=== PATIENT | female | born 1995 | race Caucasian/White ===

== ENCOUNTER 2019-03-04 18:48 | Emergency (ER) | payer BC ==
--- NOTE | 2019-03-04 19:07 | ER Report ---
History and Physical Time Seen By MD: 19:04 Hx. of Stated Complaint: sent by urgent care with an elevated d-dimer and diff breathing. it began around 2pm HPI/ROS CHIEF COMPLAINT: Shortness of breath, palpitations, dizziness HISTORY OF PRESENT ILLNESS: 23-year-old female sent over from [facility] urgent ca re after an evaluation there showed elevated d-dimer of 0.68, suggestive of pulmonary embolism. Patient's been doing ill with viral URI symptoms. Today she had an episode of 30 seconds of palpitations and dizziness with shortness of breath. She still feels mildly short of breath. Her vital signs are stable. She has a normal pulse ox reported from urgent care. They did laboratory studies which show a WBC count of 15,000, normal laboratories an elevated d- dimer. Patient's EKG showed normal sinus rhythm with suspicion of a Q in 3 and inverted T-wave in lead 3 REVIEW OF SYSTEMS: Respiratory: As above Cardiovascular: As above Gastrointestinal: No vomiting, no abdominal pain. Musculoskeletal: No back pain. Allergies: Coded Allergies: hydrocodone (Verified Adverse Reaction, Mild, VOMITING, 03/04/19) Home Meds Active Scripts Cefdinir 300 Mg Cap (OMNICEF 300 MG CAP (OR EQUIV)) 300 Mg Cap, 1 CAP PO BID for 10 Days, #20 CAP 0 Refills Prov:DIMAS OCONNOR DNP, FNP-BC 12/24/17 Fluticasone Prop 50 Mcg Ns (FLONASE 50 MCG NS) 16 Gm Flasher.susp, 2 SPRAYS NS QDAY for 10 Days, #1 BOT 0 Refills Prov:DIMAS OCONNOR DNP, FNP-BC 12/19/17 Guaifenesin/Codeine Phosphate (Codeine-Guaifen 10-100 mg/5 ml) 120 Ml Liquid, 1 TSP PO Q6H PRN for COUGH, #120 ML 0 Refills Prov:DIMAS OCONNOR DNP, FNP-BC 12/19/17 Benzonatate (BENZONATATE) 200 Mg Capsule, 1 CAP PO TID PRN for COUGH, #15 CAP 0 Refills Prov:DIMAS OCONNOR DNP, FNP-BC 12/19/17 Amoxicillin/Pot Clav 875-125 Mg Tab (AUGMENTIN 875-125 TABLET) 1 Each Tablet, 1 TAB PO Q12H for 10 Days, #20 TAB 0 Refills Prov:DIMAS OCONNOR DNP, PRODUCER-BC 12/19/17 Reported Medications Mesalamine (MESALAMINE) 1 Gm Powder, 1 GM MC 1WK 07/19/16 Lactobacillus Combination No.4 (PROBIOTIC) 1 Each Capsule, 1 EACH PO BID, CAPSULE 07/19/16 Norgestimate-Ethinyl Estradiol (ORTHO TRI-CYCLEN) 1 Each Tablet, 1 EACH PO QDAY 07/19/16 Multivitamin/Iron/Folic Acid (CENTRUM COMPLETE MULTIVIT TAB) 1 Each Tablet, 1 EACH PO QDAY 07/19/16 Erythromycin Base (ERYTHROMYCIN) Unknown Strength Oint...g., 3.5 GM OP 07/19/16 Balsalazide Disodium (COLAZAL) 750 Mg Capsule, 9 CAP PO QDAY, CAPSULE 07/19/16 Reviewed Nurses Notes: Yes Old Medical Records Reviewed: Yes Hx Smoking: Yes (2 CIGG PER WK) Smoking Status: Current: Some Days Smoker Hx Substance Use Disorder: No Hx Alcohol Use: Yes Constitutional Vital Sign - Last 24 Hours 03/04/19 03/04/19 03/04/19 03/04/19 18:56 18:58 19:03 19:30 Temp 98.7 Pulse 83 62 Resp 14 B/P (MAP) 82/59 (67) 78/49 (59) 82/67 (72) Pulse Ox 94 94 O2 Delivery Room Air 03/04/19 03/04/19 19:33 19:48 Pulse 65 64 Resp 13 18 Pulse Ox 96 93 Physical Exam General Appearance: The patient is alert, has no immediate need for airway protection and no current signs of toxicity. Vital signs stable, afebrile, pulse ox normal HEENT: Pupils equal and round no injection. TMs normal, oropharynx without redness or exudate Respiratory: Chest is non tender, lungs are clear to auscultation. Mild chest wall tenderness Cardiac: regular rate and rhythm, no murmur Gastrointestinal: Abdomen is soft and non tender, no masses, bowel sounds normal. Musculoskeletal: Neck: Neck is supple and non tender. Extremities have full range of motion and are non tender. No edema, no calf tenderness Skin: No rashes or lesions. DIFFERENTIAL DIAGNOSIS: After history and physical exam differential diagnosis was considered for chest pain including but not limited to myocardial ischemia, pericarditis pulmonary embolus, chest wall pain, pleural inflammation and pulmonary infectious causes. Additionally,shortness of breath including but not limited to pulmonary infectious process, COPD, asthma, pulmonary embolus and congestive heart failure. Medical Decision Making EKG/Imaging Imaging Results: CT scan of the CTA pulmonary angiogram was obtained. The results of the study are CT CTA CHEST W & W/O CON HISTORY: dyspnea palpitations elevated d-dimer TECHNIQUE: CTA chest with intravenous contrast attention to pulmonary arteries. Sagittal, coronal and slab 3D MIP coronal reconstructed images were also c reated for further evaluation and interpretation. CONTRAST: Isovue-370 75 mls. One of the following dose optimization techniques was utilized in the performance of this exam: Automated exposure control; adjustment of the mA and/or kV according to the patient's size; or use of an iterative reconstruction technique. Specific details can be referenced in the facility's radiology CT exam operational policy. COMPARISON: None. FINDINGS: Heart/coronary vessels: The heart size is normal. There is no pericardial effusion. Pulmonary arteries: There is no filling defect in the pulmonary arteries to suggest pulmonary embolus. Thoracic aorta: Unremarkable. Mediastinum: There is no mediastinal or hilar lymphadenopathy. The thyroid gland is unremarkable. Lymph nodes: No findings of axillary lymphadenopathy. Lungs/pleura: There is no finding of an infiltrate. Visualized upper abdomen: The upper abdomen so far as visualized is unremarkable. The gallbladder is not seen. Bones/soft tissues: Negative. IMPRESSION: 1. No findings of pulmonary embolus. 2. No findings of pneumonia or pleural effusion. The study was read by the radiologist. I viewed the images myself on the PACS system. ED Course/Re-evaluation ED Course Patient was minute to an examination room. H&P was done. The differential diagnoses was considered. Patient was sent over from urgent care. She had an extensive diagnostic evaluation including an EKG, troponin. White blood cell count were all negative. Her d-dimer was mildly elevated at 0.68, suggesting pulmonary embolism. She sent over, primarily to have a CTA pulmonary angiogram performed to rule out pulmonary embolism. Patient has diffuse nonspecific cold symptoms and chest tightness. She did have episode of near syncope and tachycardia with palpitations. Patient underwent a CTA pulmonary angiogram. She was somewhat anxious and was given hydroxyzine 25 mg by mouth. Patient's CT scan was negative for evidence of pulmonary embolus. She is advised conservative treatment plan for viral symptoms. She's advised ibuprofen, DayQuil and NyQuil. Patient advised to follow-up with primary care if unimproved in 3-5 days. Decision to Disposition Date: March 04, 2019 Decision to Disposition Time: 19:53 Depart Departure Latest Vital Signs Vital Signs Date Time Temp Pulse Resp B/P (MAP) Pulse Ox O2 Delivery O2 Flow Rate FiO2 03/04/19 19:48 64 18 93 03/04/19 19:30 82/67 (72) 03/04/19 18:58 98.7 Room Air Impression: Primary Impression: Palpitations Additional Impressions: Viral upper respiratory infection Near syncope Condition: Improved Disposition: HOME OR SELF-CARE Referrals: BESSY GONSALVES APRN-C (PCP) Patient Instructions: Near Syncope (ED), Palpitations (ED), Viral Syndrome (ED) Additional Instructions: Take ibuprofen 200 mg 3 tablets 3 times a day Use DayQuil and NyQuil as needed for symptom control Drink plenty of fluids, stay well-hydrated Follow-up with your primary care or to health unimproved in 3-5 days. Problem Qualifiers CYNTHIA MORSE DO March 04, 2019 19:07
[2019-03-04] MEDS ORDERED: IOPAMIDOL 76% 100 ML INFUS BTL 100 ML ONE (19:25)
[2019-03-04] MEDS ORDERED: NS(*) 0.9% 50 ML BAG 50 ML ONE (19:25)
[2019-03-04 19:30] VITALS: BP 82/67
[2019-03-04] MEDS ORDERED: hydrOXYzine PAMOATE 25 MG CAP PO ONE (19:35)
--- NOTE | 2019-03-04 19:49 | RADIOLOGY IMAGING REPORT ---
FACILITY: [facility] [place] PATIENT NAME: Claudia Leonard : 1995 MR: [id number] V: [id number] EXAM DATE: ORDERING PHYSICIAN: CYNTHIA MORSE TECHNOLOGIST: Location: [facility] Patient: Claudia Leonard : 1995 Visit/Account:[id number] Date of Sevice: 03/04/2019 CT CTA CHEST W & W/O CON HISTORY: dyspnea palpitations elevated d-dimer TECHNIQUE: CTA chest with intravenous contrast attention to pulmonary arteries. Sagittal, coronal a nd slab 3D MIP coronal reconstructed images were also created for further evaluation and interpretati on. CONTRAST: Isovue-370 75 mls. One of the following dose optimization techniques was utilized in the performance of this exam: Autom ated exposure control; adjustment of the mA and/or kV according to the patient's size; or use of an i terative reconstruction technique. Specific details can be referenced in the facility's radiology C T exam operational policy. COMPARISON: None. FINDINGS: Heart/coronary vessels: The heart size is normal. There is no pericardial effusion. Pulmonary arteries: There is no filling defect in the pulmonary arteries to suggest pulmonary embolus . Thoracic aorta: Unremarkable. Mediastinum: There is no mediastinal or hilar lymphadenopathy. The thyroid gland is unremarkable. Lymph nodes: No findings of axillary lymphadenopathy. Lungs/pleura: There is no finding of an infiltrate. Visualized upper abdomen: The upper abdomen so far as visualized is unremarkable. The gallbladder is not seen. Bones/soft tissues: Negative. IMPRESSION: 1. No findings of pulmonary embolus. 2. No findings of pneumonia or pleural effusion. Report Dictated By: Guido West MD at 03/04/2019 7:42 PM Report E-Signed By: Guido West MD at 03/04/2019 7:45 PM WSN:[id number]
== END 2019-03-04 20:00 | disposition home or self-care (01) ==
LOC: ER 19:05
DX: J06.9 Acute upper respiratory infection, unspecified (principal); R00.2 Palpitations; R55 Syncope and collapse
CPT/HCPCS: 71275; 99284; J7050; Q0177; Q9967

== ENCOUNTER → 2019-03-04 | Outpatient (REF) | payer BC ==
[~2019-03-04] MED LIST: ALB18R IH; AMOX-559 PO; BALS750C14 PO; BENZ200C15 PO; CEF300 PO; DOCU-416 PO; ERYT1OIN3 OP; FLUC150T40 PO; FLUT16SP19 NS; GUAI120L3 PO; HYDR2TAB74 PO; IBUP800T37 PO; LACT1CAP6 PO; MESA1POW MC; MULT-768 PO; MUPI22OI28 TP; NORG1TAB94 PO; OXYC-865 PO; SULF-198 PO; VALA100062 PO
[2019-03-04 17:29] LABS: PLATELET COUNT, AUTOMATED 398 K/uL (150-450)
== END ==
LOC: ZZIMHLAB 16:58
PROVIDERS: ATTEND Physician Assistant
DX: R06.02 Shortness of breath (principal); R42 Dizziness and giddiness; R00.2 Palpitations
CPT/HCPCS: 82040; 82247; 82310; 82374; 82435; 82565; 82947; 84075; 84132; 84155; 84295; 84450; 84460; 84484; 84520; 85025; 85379